=== PATIENT | female | born 1965 | race American Indian/Alaskan Native ===

== ENCOUNTER 2021-03-10 15:52 | Emergency (ER) | payer OTHER ==
--- NOTE | 2021-03-10 16:56 | Event Note ---
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 Further treatment and workup at subsequent clinical providers discretion. Patient/guardian urged not to elope from the ED as their condition may be serious if not clinically assessed and managed. Initial orders include: spoke with Dr. Vargas ER attending advised to call code stroke due to being within the 24 hour window
--- NOTE | 2021-03-10 17:23 | Cat Scan Report ---
CT head/brain wo con INDICATION: Stroke symptoms and blurry vision. TECHNIQUE: All CT scans at this location are performed using CT dose reduction for ALARA by means of automated e xposure control. COMPARISON: None available. FINDINGS: There is no evidence of hemorrhage, hydrocephalus, brain edema, or mass effect/mass lesion. There is extensive cerebral white matter hypoattenuation suggesting likely significant chronic small vessel is chemic change. Brain parenchymal alignment appears normal for the patient's age. The included paranasal sinuses and mastoid air cells are clear. The orbits appear unremarkable. IMPRESSION: 1. No appreciable acute infarct or other acute abnormality. Findings discussed with Dr. Brar at 4:19 PM on 03/10/2021. Signer Name: Dejuan Rojas MD Signed: 03/10/2021 5:19 PM Workstation Name: [id number]
[2021-03-10 17:28] LABS: Basophils % (Auto) 0.2 % (0.0-1.8); Eosinophils % (Auto) 0.5 % (0.0-4.3); Hematocrit 40.7 % (30.3-42.9); Hemoglobin 13.9 gm/dl (10.1-14.3); Lymphocytes # (Auto) 2.3 K/mm3 (1.2-5.4); Mean Corpuscular HGB Conc 34 % (30-34); Mean Corpuscular Volume 97 fl (79-97); Monocytes # (Auto) 0.3 K/mm3 (0.0-0.8); Monocytes % (Auto) 5.5 % (0.0-7.3); Platelet Count 233 K/mm3 (140-440); Red Blood Count 4.22 M/mm3 (3.65-5.03); Red Cell Distribution Width 12.5 % (13.2-15.2)
[2021-03-10 17:44] LABS: INR 0.93 (0.87-1.13)
[2021-03-10 17:48] LABS: Creatine Kinase MB 1.5 ng/mL (0.0-4.0)
[2021-03-10 17:49] LABS: Alanine Aminotransferase 9 units/L (7-56); Albumin 4.3 g/dL (3.9-5); Blood Urea Nitrogen 9 mg/dL (7-17); Calcium 9.7 mg/dL (8.4-10.2); Hemolysis Index 5
[2021-03-10 17:50] LABS: BUN/Creatinine Ratio 15
--- NOTE | 2021-03-10 18:07 | Consultation ---
Medications and Allergies Allergies Allergy/AdvReac Type Severity Reaction Status Date / Time No Known Allergies Allergy Unverified 02/27/20 22:34 Home Medications Medication Instructions Recorded Confirmed Last Taken Type Albuterol Mdi (or & Nicu Only) 2 puff IH Q4HR PRN #1 inhalation 02/28/20 Un known Rx [ProAir HFA Inhaler] Amoxicillin/Potassium Clav 1 each PO BID #14 tablet 02/28/20 Unknown Rx [Augmentin 875-125 Tablet] Ibuprofen [Motrin] 800 mg PO Q8HR PRN #30 tablet 02/28/20 Unknown Rx Physical Examination - Vital Signs Vital Signs: Vital Signs Temp Pulse Resp BP Pulse Ox 98.3 F 99 H 18 153/93 99 03/10/21 16:55 03/10/21 16:55 03/10/21 16:55 03/10/21 16:55 03/10/21 16:55 Results - Laboratory Findings CBC and BMP: 03/10/21 17:19 03/10/21 17:19 Abnormal Lab Findings: Abnormal Labs 03/10/21 03/10/21 03/10/21 16:56 17:19 17:19 MCH 33 H RDW 12.5 L Lymph % (Auto) 39.0 H Glucose 111 H POC Glucose 122 H Assessment and Plan [facility] Consult Note # Demographics Consult Type: Acute Stroke Level 2 (4.5-24 hrs) Patient Location: Emergency Room First Name: Helga Last Name: Tarik Date of : 1965 Age: 55 Gender: Female Time of Initial Page (Eastern Time): 03/10/2021, 17:11 Time of Return Call (Eastern Time): 03/10/2021, 17:12 # HPI History: 55 yo woman with history of DM, HTN, altered gait , slurred speech, blurred vision yesterday evening. She couldn't walk straight and was listing to the right. Last Known Normal: I have collected independent history specific to time last normal or last known well. We have collaborated with the provider and at this time, we have the most current timeline with the information that is available. Yesterday evening # Scores Time of exam and NIHSS (Eastern Time): 03/10/2021, 17:39 Level of Consciousness 1a: [0] = Alert; keenly responsive LOC Questions 1b: [0] = Answers both questions correctly LOC Commands 1c: [0] = Performs both tasks correctly Best Gaze 2: [0] = Normal Visual 3: [0] = No visual loss Facial Palsy 4: [1] = Minor paralysis Motor Arm Left 5a: [0] = No drift Motor Arm Right 5b: [0] = No drift Motor Leg Left 6a: [0] = No drift Motor Leg Right 6b: [0] = No drift Limb Ataxia 7: [0] = Absent Sensory 8: [0] = Normal Best Language 9: [0] = No aphasia Dysarthria 10: [1] = [id number] dysarthria Extinction and Inattention 11: [0] = No abnormality NIHSS Total: 2 # Exam Vitals: vital signs reviewed SBP: 155 DBP: 88 # H-FH-SH Past Medical History: Diabetes hypertension Social History: smoker occasional alcohol smokes 1 ppd Medications: Metformin, Lisinopril Allergies: NKDA # Data Head CT: no bleed # Assessment Impression: Right-sided symptoms starting yesterday concerning for acute stroke. # Plan Thrombolytic/Intervention: NOT IV Thrombolytic or IA Intervention Thrombolytic Exclusion: > 4.5 hours Intraarterial Exclusion: other Symptoms not suggestive of LVO Target Blood Pressure: SBP < 220 Labs: hemoglobin A1c lipid panel Imaging: (urgency: routine): CT Angiogram Head and CT Angiogram Neck MRI Brain without contrast Diagnostic Test: echo with bubble study Therapy/Evaluation: NPO until swallow evaluation PT/OT evaluation speech/swallow consultation Medication: aspirin 81 mg daily clopidogrel (Plavix) 75 mg daily aspirin 81 mg PLUS clopidogrel (Plavix) 75 mg for 21 days, then monotherapy therafter DVT Prophylaxis: SCD chemical DVT prophylaxis Other: LDL < 70 permissive hypertension telemetry monitoring I have discussed my recommendations with the referring provider Additional Recommendations: Quit smoking Disposition: admit # Logistics Telemedicine: Interactive 2 way audio and visual telecommunication technology was utilized during this visit
--- NOTE | 2021-03-10 18:13 | Emergency Department Report ---
ED General Adult HPI - General Chief complaint: Neuro Symptoms/Deficit Stated complaint: UNSTEADY GAIT, BLURRED VISON Time Seen by Provider: 03/10/21 16:54 Source: patient Mode of arrival: Wheelchair Limitations: Physical Limitation - History of Present Illness Initial comments: Patient presents to the emergency department the chief complaint of abnormal gait and blurry vision that started yesterday afternoon. Patient has a history hypertension, hyperlipidemia, diabetes. Patient states that she is leaning to the right when she is walking. - Related Data Previous Rx's Medication Instructions Recorded Last Taken Type Albuterol Mdi (or & Nicu Only) 2 puff IH Q4HR PRN #1 inhalation 02/28/20 Unknown Rx [ProAir HFA Inhaler] Amoxicillin/Potassium Clav 1 each PO BID #14 tablet 02/28/20 Unknown Rx [Augmentin 875-125 Tablet] Ibuprofen [Motrin] 800 mg PO Q8HR PRN #30 tablet 02/28/20 Unknown Rx Allergies Allergy/AdvReac Type Severity Reaction Status Date / Time No Known Allergies Allergy Verified 03/10/21 18:21 ED Review of Systems ROS: Stated complaint: UNSTEADY GAIT, BLURRED VISON Other details as noted in HPI Constitutional: denies: chills, fever Eyes: denies: eye pain, eye discharge, vision change ENT: denies: ear pain, throat pain Respiratory: denies: cough, shortness of breath, wheezing Cardiovascular: denies: chest pain, palpitations Endocrine: no symptoms reported Gastrointestinal: denies: abdominal pain, nausea, diarrhea Genitourinary: denies: urgency, dysuria, discharge Musculoskeletal: denies: back pain, joint swelling, arthralgia Skin: denies: rash, lesions Neurological: other (Blurry vision, dizziness, abnormal gait). denies: headache, weakness, paresthesias Psychiatric: denies: anxiety, depression Hematological/Lymphatic: denies: easy bleeding, easy bruising ED Past Medical Hx - Past Medical History Previous Medical History?: Yes Hx Hypertension: Yes Hx Diabetes: Yes - Social History Smoking Status: Heavy Tobacco Smoker - Medications Home Medications: Home Medications Medication Instructions Recorded Confirmed Last Taken Type Albuterol Mdi (or & Nicu Only) 2 puff IH Q4HR PRN #1 inhalation 02/28/20 Unknown Rx [ProAir HFA Inhaler] Amoxicillin/Potassium Clav 1 each PO BID #14 tablet 02/28/20 Unknown Rx [Augmentin 875-125 Tablet] Ibuprofen [Motrin] 800 mg PO Q8HR PRN #30 tablet 02/28/20 Unknown Rx ED Physical Exam - General Limitations: Physical Limitation General appearance: alert, in no apparent distress - Head Head exam: Present: atraumatic, normocephalic - Eye Eye exam: Present: normal appearance, PERRL, EOMI - ENT ENT exam: Present: mucous membranes moist - Neck Neck exam: Present: normal inspection - Respiratory Respiratory exam: Present: normal lung sounds bilaterally. Absent: respiratory distress - Cardiovascular Cardiovascular Exam: Present: regular rate, normal rhythm. Absent: systolic murmur, diastolic murmur, rubs, gallop - GI/Abdominal GI/Abdominal exam: Present: soft, normal bowel sounds. Absent: distended, tenderness - Extremities Exam Extremities exam: Present: normal inspection - Back Exam Back exam: Present: normal inspection - Neurological Exam Neurological exam: Present: alert, oriented X3, CN II-XII intact, other (Finger- nose, [id number], rapid hand movements normal. Patient leans to the right when walking). Absent: motor sensory deficit - Psychiatric Psychiatric exam: Present: normal affect, normal mood - Skin Skin exam: Present: warm, dry, intact, normal color. Absent: rash ED Course Vital Signs 03/10/21 03/10/21 03/10/21 16:55 17:24 17:31 Temperature 98.3 F Pulse Rate 99 H 77 Respiratory 18 17 Rate Blood Pressure 155/88 Blood Pressure 153/93 [Right] O2 Sat by Pulse 99 98 98 Oximetry 03/10/21 03/10/21 03/10/21 17:34 17:45 18:00 Temperature 98.4 F Pulse Rate 85 74 Respiratory 13 16 Rate Blood Pressure 155/88 157/82 Blood Pressure [Right] O2 Sat by Pulse 98 98 Oximetry 03/10/21 03/10/21 03/10/21 18:12 18:16 18:19 Temperature 98.1 F Pulse Rate 75 Respiratory 18 13 Rate Blood Pressure 155/88 Blood Pressure [Right] O2 Sat by Pulse 99 98 Oximetry ED Medical Decision Making - Lab Data Result diagrams: 03/10/21 17:19 03/10/21 17:19 Lab Results 03/10/21 03/10/21 03/10/21 Range/Units 16:56 17:19 17:19 WBC 6.0 (4.5-11.0) K/mm3 RBC 4.22 (3.65-5.03) M/mm3 Hgb 13.9 (10.1-14.3) gm/dl Hct 40.7 (30.3-42.9) % MCV 97 (79-97) fl MCH 33 H (28-32) pg MCHC 34 (30-34) % RDW 12.5 L (13.2-15.2) % Plt Count 233 (140-440) K/mm3 Lymph % (Auto) 39.0 H (13.4-35.0) % [place] % (Auto) 5.5 (0.0-7.3) % Eos % (Auto) 0.5 (0.0-4.3) % Baso % (Auto) 0.2 (0.0-1.8) % Lymph # (Auto) 2.3 (1.2-5.4) K/mm3 [place] # (Auto) 0.3 (0.0-0.8) K/mm3 Eos # (Auto) 0.0 (0.0-0.4) K/mm3 Baso # (Auto) 0.0 (0.0-0.1) K/mm3 Seg Neutrophils % 54.8 (40.0-70.0) % Seg Neutrophils # 3.3 (1.8-7.7) K/mm3 PT 13.0 (12.2-14.9) Sec. INR 0.93 (0.87-1.13) APTT 30.0 (24.2-36.6) Sec. Thrombin Time 18.0 (15.1-19.6) Sec. Sodium (137-145) mmol/L Potassium (3.6-5.0) mmol/L Chloride (98-107) mmol/L Carbon Dioxide (22-30) mmol/L Anion Gap mmol/L BUN (7-17) mg/dL Creatinine (0.6-1.2) mg/dL Estimated GFR ml/min BUN/Creatinine Ratio % Glucose (65-100) mg/dL POC Glucose 122 H (70-105) mg/dL Calcium (8.4-10.2) mg/dL Total Bilirubin (0.1-1.2) mg/dL AST (5-40) units/L ALT (7-56) units/L Alkaline Phosphatase (35-129) units/L Total Creatine Kinase (30-135) units/L CK-MB (CK-2) (0.0-4.0) ng/mL CK-MB (CK-2) Rel Index (0-4) Troponin T (0.00-0.029) ng/mL Total Protein (6.3-8.2) g/dL Albumin (3.9-5) g/dL Albumin/Globulin Ratio % 03/10/21 Range/Units 17:19 WBC (4.5-11.0) K/mm3 RBC (3.65-5.03) M/mm3 Hgb (10.1-14.3) gm/dl Hct (30.3-42.9) % MCV (79-97) fl MCH (28-32) pg MCHC (30-34) % RDW (13.2-15.2) % Plt Count (140-440) K/mm3 Lymph % (Auto) (13.4-35.0) % [place] % (Auto) (0.0-7.3) % Eos % (Auto) (0.0-4.3) % Baso % (Auto) (0.0-1.8) % Lymph # (Auto) (1.2-5.4) K/mm3 [place] # (Auto) (0.0-0.8) K/mm3 Eos # (Auto) (0.0-0.4) K/mm3 Baso # (Auto) (0.0-0.1) K/mm3 Seg Neutrophils % (40.0-70.0) % Seg Neutrophils # (1.8-7.7) K/mm3 PT (12.2-14.9) Sec. INR (0.87-1.13) APTT (24.2-36.6) Sec. Thrombin Time (15.1-19.6) Sec. Sodium 137 (137-145) mmol/L Potassium 3.9 (3.6-5.0) mmol/L Chloride 102.2 (98-107) mmol/L Carbon Dioxide 26 (22-30) mmol/L Anion Gap 13 mmol/L BUN 9 (7-17) mg/dL Creatinine 0.6 (0.6-1.2) mg/dL Estimated GFR > 60 ml/min BUN/Creatinine Ratio 15 % Glucose 111 H (65-100) mg/dL POC Glucose (70-105) mg/dL Calcium 9.7 (8.4-10.2) mg/dL Total Bilirubin 0.20 (0.1-1.2) mg/dL AST 12 (5-40) units/L ALT 9 (7-56) units/L Alkaline Phosphatase 65 (35-129) units/L Total Creatine Kinase 96 (30-135) units/L CK-MB (CK-2) 1.5 (0.0-4.0) ng/mL CK-MB (CK-2) Rel Index 1.5 (0-4) Troponin T < 0.010 (0.00-0.029) ng/mL Total Protein 7.2 (6.3-8.2) g/dL Albumin 4.3 (3.9-5) g/dL Albumin/Globulin Ratio 1.5 % - EKG Data -: EKG Interpreted by Ar EKG shows normal: sinus rhythm Rate: normal - Radiology Data Radiology results: report reviewed - Medical Decision Making Patient seen by teleneurology TPA was not suggested Suggestion made for the patient be admitted for stroke work-up Spoke to the Dr. Starr at 6:30 pm at [facility] who asked for CTA of the head and neck and will attempt to get the patient transferred to their facility CTA of the head and neck were done with a CT of the head not revealing any large vessel occlusions. CT head and neck shows minor stenosis of the carotid arteries. This was relayed to Dr. Starr and the patient will be accepted to [facility] under the care of Dr. Yee Results and plan of care discussed with patient Critical Care Time: Yes Critical care time in (mins) excluding proc time.: 35 Critical care attestation.: If time is entered above; I have spent that time in minutes in the direct care of this critically ill patient, excluding procedure time. ED Disposition Clinical Impression: Ataxic gait, Facial droop Disposition: [id number] LEFT AGAINST MED ADVICE Is pt being admited?: No Does the pt Need Aspirin: No Condition: Stable - Assessment Assessment Interval: Baseline - Level of Consciousness 1a. Level of Consciousness: alert/keenly responsive - LOC Questions 1b. LOC Questions: answers both correctly - LOC Command 1c. LOC Commands: performs tasks correctly - Best Gaze 2. Best Gaze: normal - Visual 3. Visual: no visual loss - Facial Palsy 4. Facial Palsy: minor paralysis - Motor Arm 5a. Motor Arm Left: no drift 5b. Motor Arm Right: no drift - Motor Leg 6a. Motor Leg Left: no drift 6b. Motor Leg Right: no drift - Limb Ataxia 7. Limb Ataxia: absent - Best Language 9. Best Language: no aphasia - Dysarthria 10. Dysarthria: mild/moderate dysarthria - Extinction and Inattention 11. Extinction/Inattention: no abnormality
[2021-03-10] MEDS ORDERED: ASPIRIN 81 MG TAB CHEW PO ONE (18:29)
--- NOTE | 2021-03-10 20:19 | Cat Scan Report ---
CTA NECK WITH CONTRAST 03/10/2021 INDICATION / CLINICAL INFORMATION: cva. COMPARISON: None. TECHNIQUE: Routine CTA of the neck is performed. 3-D/MIP reformats were postprocessed. Percentage st enosis is determined by direct quantitative measurements of diseased internal carotid artery diameter compared with normal distal internal carotid artery reference segments or by criteria similar to MAYE CET where applicable. All CT scans at this location are performed using CT dose reduction for ALARA b y means of automated exposure control. CONTRAST: 100 ml of Omnipaque 350 FINDINGS: Carotid bifurcations: Atherosclerotic plaque is present at the carotid bifurcations bilaterally, with less than 20% narrowing of the proximal ICAs bilaterally. Carotid arteries: No significant abnormality. Cervical vertebral arteries: No significant abnormality. Aortic arch: There is a 50% narrowing of the proximal right subclavian artery just beyond the bifurca tion of the brachiocephalic artery. None. IMPRESSION: No significant abnormality. Signer Name: Brooks Rodriges MD Signed: 03/10/2021 8:14 PM Workstation Name: [id number]
--- NOTE | 2021-03-10 20:22 | Cat Scan Report ---
CTA HEAD WITH CONTRAST 03/10/2021 HISTORY: cva. COMPARISON: None. TECHNIQUE: All CT scans at this location are performed using CT dose reduction for ALARA by means of automated exposure control.. 3-D/MIP reformats postprocessed. Percentage stenosis is determined by d irect quantitative measurements of diseased internal carotid artery diameter compared with normal dis sohan internal carotid artery reference segments or by criteria similar to NASCET where applicable. CONTRAST: 100 ml of Omnipaque 350 FINDINGS: CTA HEAD: Intracranial vertebral arteries: No significant abnormality. Basilar artery: No significant abnormality. Posterior cerebral arteries: No significant abnormality. Intracranial internal carotid arteries: Bilateral atherosclerotic calcifications associated with the distal ICAs at the level of the cavernous sinus, associated with segmental moderate to severe stenosi s, left greater than right. Anterior cerebral arteries: No significant abnormality. Middle cerebral arteries: No significant abnormality. Dural venous sinuses:Not optimally opacified. No significant abnormality. Additional findings: None. IMPRESSION: 1. Distal ICA atherosclerotic changes. No evidence of large vessel occlusion. Signer Name: Brooks Rodriges MD Signed: 03/10/2021 8:18 PM Workstation Name: [id number]
[2021-03-10] MEDS ORDERED: ASPIRIN 81 MG TAB CHEW ONE (20:36)
[2021-03-10 22:35] VITALS: BP 155/82
--- NOTE | 2021-03-11 18:00 | Electrocardiograph Report ---
[facility] Test Date: 2021-03-10 Test Time: 17:55:15 Pat Name: BRANT AZAR Department: Room: Gender: F Business Integration Manager: LEONORA : 1965 Requested By: SOCORRO NICHOLS Order Number: [id number] Reading MD: Jennifer Erickson Measurements Intervals [place] Rate: 76 P: 62 SC: 150 QRS: 61 QRSD: 90 T: 59 QT: 387 QTc: 435 Interpretive Statements Sinus rhythm No previous ECG available for comparison Electronically Signed On 03-11-2021 18:00:46 EDT by Jennifer Erickson
== END 2021-03-10 22:00 | disposition other institution (70) ==
LOC: ED 15:52
DX: R26.0 Ataxic gait (principal); R29.810 Facial weakness; H53.8 Other visual disturbances; I10 Essential (primary) hypertension; E11.9 Type 2 diabetes mellitus without complications; F17.200 Nicotine dependence, unspecified, uncomplicated; Z79.899 Other long term (current) drug therapy; R79.1 Abnormal coagulation profile
CPT/HCPCS: 36415; 70450; 70496; 70498; 80053; 82550; 82553; 82962; 84484; 85025; 85610; 85670; 85730; 93005; 99291; Q9967